=== PATIENT | female | born 1955 ===

== ENCOUNTER 2020-10-25 06:53 | Day surgery (SDC) | payer OTHER ==
[~2020-10-25 06:53] MED LIST: COZAAR50 MG PO; GLIPIZIDE XL10 MG PO; INDUR; PLAVIX75 MG PO; SIMVASTATIN40 MG PO
== END 2020-10-25 14:05 | disposition home or self-care (01) ==
LOC: CIR.AMB 06:53
PROVIDERS: ATTEND Orthopaedic Surgery
DX: M75.122 Complete rotator cuff tear or rupture of left shoulder, not specified as traumatic (principal); M75.22 Bicipital tendinitis, left shoulder; M75.32 Calcific tendinitis of left shoulder; Z20.822 Contact with and (suspected) exposure to COVID-19